=== PATIENT | male | born 1990 | race Caucasian/White ===

== ENCOUNTER 2017-10-16 19:51 | Emergency (ER) | payer OTHER ==
[~2017-10-16] VITALS: Ht 167.6 cm; Wt 68.0 kg
--- NOTE | 2017-10-16 19:57 | NUR ---
Dr. Stallworth at bedside for MSE.
--- NOTE | 2017-10-16 20:00 | NUR ---
Patient ambulated to ER with steady gait, reports woke up, had chest pain, sharp, radiates to back, was ignoring it for a few hours, has nausea, but no vomiting.
[2017-10-16] MEDS ORDERED: KETOROLAC TROMETHAMINE 15 MG INJ ONE (20:22)
[2017-10-16] MEDS ORDERED: ONDANSETRON 4 MG/2 ML VIAL ONE ×2 (20:22→21:11)
[2017-10-16] MEDS: ONDANSETRON 4 MG/2 ML VIAL IV ONE (20:27)
[2017-10-16] MEDS: IV NORMAL SALINE 1000 ML BAG IV ONE (20:27)
[2017-10-16] MEDS: KETOROLAC TROMETHAMINE 15 MG INJ IV ONE (20:27)
[2017-10-16 20:28] LABS: BASOPHILS # (AUTO) 0.1 K/uL (0.0-8.0); EOSINOPHILS # (AUTO) 0.3 K/uL (0.0-0.7); EOSINOPHILS % (AUTO) 3.9 % (0.0-7.0); HEMATOCRIT 43.2 % (36.7-47.1); HEMOGLOBIN 14.9 g/dL (12.5-16.3); LYMPHOCYTES # (AUTO) 2.8 K/uL (20.0-40.0); LYMPHOCYTES % (AUTO) 39.6 % (20.5-51.5); MEAN CORPUSCULAR HEMOGLOBIN 29.4 uug (23.8-33.4); MEAN CORPUSCULAR HGB CONC 34 g/dL (32.5-36.3); MEAN CORPUSCULAR VOLUME 85.3 fL (73.0-96.2); MONOCYTES # (AUTO) 0.6 K/uL (2.0-10.0); NEUTROPHILS # (AUTO) 3.3 K/uL (1.8-8.9); NEUTROPHILS % (AUTO) 46.5 % (38.5-71.5); PLATELET COUNT (AUTO) 208 K/uL (152-348); RED BLOOD CELL COUNT(AUTO) 5.07 MIL/uL (4.06-5.63); WHITE BLOOD COUNT (AUTO) 7.2 K/uL (3.6-10.2)
[2017-10-16 20:36] LABS: CREATININE 0.8 mg/dL (0.6-1.3); POTASSIUM 3.8 mmol/L (3.5-5.1)
[2017-10-16 20:47] LABS: BILIRUBIN,DIRECT 0.2 mg/dL (0.0-0.2); BILIRUBIN,TOTAL 0.8 mg/dL (0.2-1.0); TOTAL PROTEIN, SERUM 7.3 g/dL (6.4-8.2)
--- NOTE | 2017-10-16 20:59 | NUR ---
Patient states pain reduced slightly, now about a 7/10, unable to tell if pain is chest or stomach, still feels nauseous.
[2017-10-16] MEDS ORDERED: HYDROMORPHONE 4 MG/1 ML DISP.SYRIN ONE (21:11)
[2017-10-16] MEDS: HYDROMORPHONE 1 MG/1 ML DISP.SYRIN IV ONE (21:14)
[2017-10-16] MEDS: ONDANSETRON IV *ER 4 MG/2 ML VIAL IV ONE (21:15)
--- NOTE | 2017-10-16 21:15 | NUR ---
Lalo jin in ED - 10/16/17 at 2131 by TANIYA Patient refused EKG and blood draw. aware.
[2017-10-16] MEDS ORDERED: IOHEXOL 350 100 ML INFUS..BTL ONE (21:18)
[2017-10-16] MEDS ORDERED: IV NORMAL SALINE 100 ML ONE (21:18)
[2017-10-16] MEDS ORDERED: NORMAL SALINE FLUSH 10 ML DISP.SYRIN ONE (21:18)
--- NOTE | 2017-10-16 21:27 | NUR ---
Patient out of ER for CT.
--- NOTE | 2017-10-16 21:46 | NUR ---
Patient back to ER from CT.
--- NOTE | 2017-10-16 21:53 | NUR ---
Patient reports pain now about a 5/10, doesn't want anymore pain meds.
--- NOTE | 2017-10-16 23:17 | NUR ---
Patient in bed, talking with family at bedside, no acute signs of distress.
--- NOTE | 2017-10-16 23:35 | NUR ---
Patient discharged to home in stable conditon. Written and verbal after care instructions given. Patient verbalizes understanding of instructions. Patient ambulated out of ER with steady gait, VSS, no acute signs of distress, all belongings taken.
[2017-10-16 23:38] VITALS: BP 141/75
== END 2017-10-16 23:39 | disposition home or self-care (01) ==
LOC: ER 19:52
DX: R07.89 Other chest pain (principal)
CPT/HCPCS: 36415; 70030-TC; 71045; 85025; 85730; 93005; A4663; J1170; J1885; J2405; J3490; J7030; Q9967